=== PATIENT | male | born 1950 | race Caucasian/White ===

== ENCOUNTER 2019-10-02 15:16 | Emergency (ER) | payer MEDICARE | END 2019-10-02 15:33 | disposition home or self-care (01) | LOC: ERS 15:16 | DX: S60.461A Insect bite (nonvenomous) of left index finger, initial encounter (principal); I10 Essential (primary) hypertension; F32.9 Major depressive disorder, single episode, unspecified; Z87.891 Personal history of nicotine dependence; W57.XXXA Bitten or stung by nonvenomous insect and other nonvenomous arthropods, initial encounter | CPT/HCPCS: 99282 ==

== ENCOUNTER 2020-03-16 12:02 | Outpatient (CLI) | payer MEDICARE ==
[2020-03-16 16:31] LABS: #Eosinphils 0.1 10x3/uL (0.0-0.5); #Monocytes 0.4 10x3/uL (0.0-1.1); #Neutrophils 5.4 10x3/uL (1.5-8.4); %Basophils 0.5 % (0.0-2.0); %Eosinophils 0.7 % (0.0-6.0); %Lymphocytes 19.6 % (18.0-47.0); %Monocytes 5.2 % (0.0-10.0); %Neutrophils 73.9 % (40.0-75.0); Hemoglobin 14.7 g/dL (14.0-18.0); Mean Corpuscular HGB CONC 33.9 G/DL (32.0-36.0); Mean Corpuscular Hemoglobin 32.1 PG (27.0-33.0); Mean Corpuscular Volume 94.5 fl (80.0-100.0); Mean Platelet Volume 11.8 fl (7.4-10.4); Platelet Count 100 10x3/uL (130-400); RBC Distribution Width 12.3 % (11.5-14.5); Red Blood Cell (RBC) Count 4.58 10x6/uL (4.40-5.80); White Blood Cell (WBC) Count 7.3 10x3/uL (4.5-11.0)
[2020-03-16 16:37] LABS: ALT (SGPT) 15 U/L (8-55); AST (SGOT) 17 U/L (5-34); Albumin 4.5 g/dL (3.4-4.8); Alkaline Phosphatase 58 U/L (40-110); Anion Gap 15 mmol/L (10-20); BUN (Urea Nitrogen) 41 mg/dL (8.4-25.7); Bilirubin, Total 1.3 mg/dL (0.2-1.2); Calc. Creatinine Clearance 0 mL/min (70-130); Calcium 9.8 mg/dL (7.8-10.44); Carbon Dioxide 26 mmol/L (23-31); Chloride 102 mmol/L (98-107); Estimated GFR-MDRD 58; Globulin 2.3 g/dL (2.4-3.5); Glucose 163 mg/dL (80-115); Potassium 4.8 mmol/L (3.5-5.1); Protein, Total 6.8 g/dL (5.8-8.1); Sodium 138 mmol/L (136-145)
[2020-03-17 13:02] LABS: SARS-CoV-2 MS2 Positive; SARS-CoV-2 N Gene Negative; SARS-CoV-2 S Gene Negative; SARS-CoV-2 by NAA Not Detected (NotDetected); SARS-CoV-2 orf1ab Negative
--- NOTE | 2020-03-19 07:03 | EKG ---
Test Reason : PREOP Blood Pressure : / mmHG Vent. Rate : 046 BPM Atrial Rate : 046 BPM P-R Int : 172 ms QRS Dur : 104 ms QT Int : 446 ms P-R-T Axes : 063 045 050 degrees QTc Int : 390 ms Sinus bradycardia with Premature atrial complexes Otherwise normal ECG Confirmed by JOSE ELIAS GONCALVES MD ([id number]) on 03/19/2020 7:02:53 AM Referred By: DEIDRE Confirmed By:JOSE ELIAS GONCALVES MD
== END 2020-03-16 12:03 | disposition home or self-care (01) ==
LOC: LABBT 12:02
PROVIDERS: ATTEND Internal Medicine Cardiovascular Disease
DX: Z01.818 Encounter for other preprocedural examination (principal); R94.39 Abnormal result of other cardiovascular function study; Z20.828 Contact with and (suspected) exposure to other viral communicable diseases
CPT/HCPCS: 80053; 85025; 93005; U0003; 87635; 93010

== ENCOUNTER 2020-03-19 06:16 | Day surgery (SDC) | payer MEDICARE ==
[2020-03-18 12:57] VITALS: BMI 22.4
[2020-03-19] MEDS ORDERED: Heparin 10,000 UNITS/ 10 ML VIAL ONE (06:40)
[2020-03-19] MEDS ORDERED: Midazolam HCl 2 mg/2 ml Vial ONE (06:56)
[2020-03-19] MEDS ORDERED: Fentanyl 100 MCG/2 ML VIAL ONE (06:57)
[2020-03-19 07:15] LABS: Cardiac Risk 2.8 (Less than 4.5)
[2020-03-19] MEDS ORDERED: Protamine Sulfate 50 MG/5 ML VIAL ONE (07:16)
[2020-03-19] MEDS ORDERED: Iopamidol 370 76% 100 ML VIAL ONE (14:25)
== END 2020-03-19 14:22 | disposition home or self-care (01) ==
LOC: CCL 06:16
PROVIDERS: ATTEND Internal Medicine Cardiovascular Disease
PROC: 4A023N7 Measurement of Cardiac Sampling and Pressure, Left Heart, Percutaneous Approach (ICD-10-PCS; principal; 2020-03-19)
PROC: B2111ZZ Fluoroscopy of Multiple Coronary Arteries using Low Osmolar Contrast (ICD-10-PCS; 2020-03-19)
DX: I25.10 Atherosclerotic heart disease of native coronary artery without angina pectoris (principal); I10 Essential (primary) hypertension; F32.9 Major depressive disorder, single episode, unspecified; F90.9 Attention-deficit hyperactivity disorder, unspecified type; R73.03 Prediabetes; Z87.891 Personal history of nicotine dependence; Z79.82 Long term (current) use of aspirin; Z79.899 Other long term (current) drug therapy
CPT/HCPCS: 36415; 80061; 85347; 93458; 99152; 99153; J1644; J2250; J2720; J3010; Q9967

== ENCOUNTER 2020-04-21 06:56 | Outpatient (CLI) | payer MEDICARE ==
--- NOTE | 2020-04-21 08:09 | ULT ---
EXAM: US Gallbladder RUQ CLINICAL HISTORY: Right upper quadrant pain. COMPARISON: None. FINDINGS: Pancreas: Obscured by bowel gas Liver:Hepatic parenchyma has a normal echotexture. No solid hepatic masses or intrahepatic biliary di latation. Right hepatic lobe: 17.5 cm right hepatic lobe cyst measures 1.6 x 1.6 x 1.7 cm. Additional right hepatic lobe cyst measures 2.6 x 3.3 x 2.5 cm. Gallbladder: No sonographic evidence of cholelithiasis, gallbladder wall thickening or pericholecysti c fluid. Bladder is somewhat contracted. Patient is not nothing by mouth. Retana's sign:Negative Portal Vein: Patent. Appropriate directional flow Bile ducts: 0.8 cm common bile duct diameter Right kidney: Not be assessed due to shadowing. IMPRESSION: 1. No sonographic evidence of cholelithiasis or cholecystitis. Gallbladder is somewhat contracted. Pa tient is not nothing by mouth. If there is concern for a calculus cholecystitis, consider HIDA scan with ejection fraction.
== END 2020-04-21 06:57 | disposition home or self-care (01) ==
LOC: BICULT 06:56
PROVIDERS: ATTEND Physician Assistant Medical
DX: R10.11 Right upper quadrant pain (principal); K82.0 Obstruction of gallbladder
CPT/HCPCS: 76705

== ENCOUNTER 2022-08-31 14:40 | Outpatient (CLI) | payer MEDICARE | END 2022-08-31 14:41 | disposition home or self-care (01) | LOC: BICRAD 14:40 | PROVIDERS: ATTEND Family Medicine | DX: M25.511 Pain in right shoulder (principal); M19.011 Primary osteoarthritis, right shoulder ==

== ENCOUNTER 2023-03-10 19:22 | Observation (INO) | payer MEDICARE ==
[2023-03-10 20:06] LABS: #Monocytes 0.3 thou/uL (0.11-0.59); #Neutrophils 3.2 thou/uL (1.40-6.50); %Basophils 0.4 % (0.0-1.0); %Eosinophils 0.6 % (0.0-10.0); %Lymphocytes 24.8 % (21.0-51.0); %Monocytes 5.8 % (0.0-10.0); %Neutrophils 68.2 % (42.0-75.0); Hematocrit 39.2 % (42.0-52.0); Hemoglobin 13.3 g/dL (14.0-18.0); Mean Corpuscular HGB CONC 33.9 g/dL (32.0-36.0); Mean Corpuscular Hemoglobin 34.5 pg (27.0-31.0); Mean Corpuscular Volume 101.8 fl (78.0-98.0); Mean Platelet Volume 12.1 fL (7.4-10.4); Platelet Count 94 10x3/uL (130-400); RBC Distribution Width 13.2 % (11.5-14.5); Red Blood Cell (RBC) Count 3.85 mill/uL (4.70-6.10); White Blood Cell (WBC) Count 4.7 10x3/uL (4.8-10.8)
[2023-03-10 20:29] LABS: ALT (SGPT) 8 U/L (8-55); AST (SGOT) 15 U/L (5-34); Albumin 5.1 g/dL (3.4-4.8); Alkaline Phosphatase 57 U/L (40-110); Anion Gap 15 mmol/L (10-20); BUN (Urea Nitrogen) 42 mg/dL (8.4-25.7); Calc. Creatinine Clearance 0 mL/min (70-130); Calcium 10.3 mg/dL (7.8-10.44); Carbon Dioxide 26 mmol/L (23-31); Chloride 104 mmol/L (98-107); Estimated GFR 52; Globulin 2.3 g/dL (2.4-3.5); Glucose 163 mg/dL (80-115); Lipase 28 U/L (8-78); Potassium 3.7 mmol/L (3.5-5.1); Protein, Total 7.4 g/dL (5.8-8.1); Sodium 141 mmol/L (136-145)
[2023-03-10 20:30] LABS: Troponin I 0.043 ng/mL (< 0.028)
[2023-03-10] MEDS ORDERED: Nitroglycerin 0.4 MG TAB (25 Tab Bottle) ONE (21:26)
[2023-03-10] MEDS ORDERED: Aspirin Chewable 81 MG TAB ONE (21:26)
[2023-03-10] MEDS ORDERED: Acetaminophen 650 MG Suppository PR PRN (21:39)
[2023-03-10] MEDS ORDERED: Acetaminophen 325 MG TAB PO PRN (21:39)
[2023-03-10] MEDS ORDERED: Ondansetron ODT 4 MG TAB PO PRN (21:39)
[2023-03-10] MEDS ORDERED: Ondansetron PF 4 MG/2 ML Vial IVP PRN (21:39)
[2023-03-10] MEDS: Nitroglycerin 2% Ointment 1 INCH/1 GM Packet TOP SCH (23:29)
[2023-03-11 00:51] LABS: Troponin I 0.045 ng/mL (< 0.028)
[2023-03-11] MEDS ORDERED: Sodium Chloride 0.9% 500 ML IV SCH ×2 (01:30→01:45)
[2023-03-11] MEDS: Sodium Chloride 0.9% 1,000 ML IV SCH ×2 (02:06→17:40)
[2023-03-11 02:55] LABS: #Eosinphils 0.1 thou/uL (0.0-0.7); #Monocytes 0.3 thou/uL (0.11-0.59); %Basophils 0.6 % (0.0-1.0); %Eosinophils 1.7 % (0.0-10.0); %Monocytes 8.4 % (0.0-10.0); %Neutrophils 55.3 % (42.0-75.0); Hematocrit 32.3 % (42.0-52.0); Hemoglobin 10.8 g/dL (14.0-18.0); Mean Corpuscular HGB CONC 33.4 g/dL (32.0-36.0); Mean Corpuscular Hemoglobin 34.7 pg (27.0-31.0); Mean Corpuscular Volume 103.9 fl (78.0-98.0); Mean Platelet Volume 11.8 fL (7.4-10.4); RBC Distribution Width 13.4 % (11.5-14.5); Red Blood Cell (RBC) Count 3.11 mill/uL (4.70-6.10); White Blood Cell (WBC) Count 3.6 10x3/uL (4.8-10.8)
[2023-03-11 02:57] LABS: Platelet Count 79 10x3/uL (130-400)
[2023-03-11 03:19] LABS: Chloride 111 mmol/L (98-107); Potassium 3.4 mmol/L (3.5-5.1); Sodium 142 mmol/L (136-145); Troponin I 0.041 ng/mL (< 0.028)
[2023-03-11 03:20] LABS: Glucose 97 mg/dL (80-115)
[2023-03-11 03:22] LABS: Anion Gap 11 mmol/L (10-20); Carbon Dioxide 23 mmol/L (23-31)
[2023-03-11 03:24] LABS: BUN (Urea Nitrogen) 38 mg/dL (8.4-25.7); Calc. Creatinine Clearance 55 mL/min (70-130); Estimated GFR 66
[2023-03-11] MEDS: Nitroglycerin 2% Ointment 1 INCH/1 GM Packet TOP SCH ×2 (06:50→17:40)
[2023-03-11 06:51] LABS: Magnesium 1.9 mg/dL (1.6-2.6)
[2023-03-11] MEDS ORDERED: Regadenoson 0.4 MG/5 ML SYRINGE ONE (08:04)
[2023-03-11] MEDS ORDERED: Potassium Bicarbonate/Cit Ac 20 MEQ TAB PO SCH (08:15)
[2023-03-11] MEDS ORDERED: Aspirin Chewable 81 MG TAB ONE (08:39)
[2023-03-11] MEDS ORDERED: Potassium Bicarbonate/Cit Ac 20 MEQ TAB ONE (08:39)
[2023-03-11] MEDS ORDERED: Aspirin Chewable 81 MG TAB PO SCH (09:00)
[2023-03-11 14:04] VITALS: BMI 21.0
[2023-03-11 15:27] VITALS: BP 104/54; TEMP 97.5
== END 2023-03-11 18:20 | disposition home or self-care (01) ==
LOC: ERS 19:22 → ERHOLD 21:22 → 2NO 03-11 13:22
PROVIDERS: ADMIT Student in an Organized Health Care Education/Training Program; ATTEND Internal Medicine
DX: R07.9 Chest pain, unspecified (principal); N17.9 Acute kidney failure, unspecified; D64.9 Anemia, unspecified; D69.6 Thrombocytopenia, unspecified; I10 Essential (primary) hypertension; I25.10 Atherosclerotic heart disease of native coronary artery without angina pectoris; I25.2 Old myocardial infarction; Z79.82 Long term (current) use of aspirin; Z79.899 Other long term (current) drug therapy; Z87.891 Personal history of nicotine dependence; Z90.89 Acquired absence of other organs
CPT/HCPCS: 71045; 78452; 80048; 80053; 82607; 83690; 83735; 83880; 84484 ×2; 85025 ×2; 93005; 93017; 99285; A9502; G0378 ×3; J2785; 36415; J7030; J7050